=== PATIENT | female | born 1975 | race Hispanic/Latino ===

== ENCOUNTER 2018-12-27 09:08 | Observation (INO) | payer OTHER ==
[2018-12-26 11:23] LABS: Basophils % (Auto) 0.9 % (0.0-1.8); Eosinophils # (Auto) 0.1 K/mm3 (0.0-0.4); Eosinophils % (Auto) 1.3 % (0.0-4.3); Hematocrit 37.2 % (30.3-42.9); Lymphocytes # (Auto) 1.8 K/mm3 (1.2-5.4); Mean Corpuscular HGB Conc 35 % (30-34); Mean Corpuscular Volume 92 fl (79-97); Monocytes # (Auto) 0.4 K/mm3 (0.0-0.8); Monocytes % (Auto) 9.2 % (0.0-7.3); Platelet Count 193 K/mm3 (140-440); Red Blood Count 4.06 M/mm3 (3.65-5.03); Red Cell Distribution Width 12.9 % (13.2-15.2)
--- NOTE | 2018-12-26 11:48 | Anesthesia Consultation ---
Anesthesia Consult and Med Hx Date of service: 12/27/18 - Airway Anesthetic Teeth Evaluation: Good ROM Head & Neck: Adequate Mental/Hyoid Distance: Adequate Mallampati Class: Class II Intubation Access Assessment: Probably Good - Pulmonary Exam CTA: Yes - Cardiac Exam Cardiac Exam: RRR - Pre-Operative Health Status ASA Pre-Surgery Classification: ASA2 Proposed Anesthetic Plan: General Nerve Block: Tap - Pulmonary Hx Asthma: Yes (Last treated 1 year ago) - Central Nervous System Hx Psychiatric Problems: Yes - Other Systems Hx Alcohol Use: Yes (Occas) Hx Cancer: No
[~2018-12-27 09:08] MED LIST: LACTATED RINGERS 1,000 ML IV SCH; MARCAINE 0.5% INFILTRATI NR; NEOSPORIN GU IR ONE; NEURONTIN PO NR; XYLOCAINE 1% 20 mL INFILTRATI NR
[2018-12-27] MEDS ORDERED: NACL BACTERIOSTATIC INFILTRATI ONE (10:14)
--- NOTE | 2018-12-27 10:31 | History and Physical Report ---
History of Present Illness Date of examination: 12/27/18 Chief complaint: Symptomatic uterine fibroids History of present illness: Pt is a 43yo WF LMP 5 years ago present for a surgical evaluation and treatment of uterine fibroids. She complains of pelvic pains and pelvic u/s showed an enlarged uterus 9.1 x 4.5 x 5.7cm with a left uterine fibroid 4.2 x 3.8 x 4.3cm She is therefore scheduled for a Robotic Assisted Total Hysterectomy with ovarian conservation. 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 Family/Genetic History: none Social history: no significant social history, Medications and Allergies Allergies Allergy/AdvReac Type Severity Reaction Status Date / Time No Known Allergies Allergy Unverified 12/22/18 09:56 Home Medications Medication Instructions Recorded Confirmed Last Taken Type FLUoxetine HCL [Fluoxetine HCl] 40 mg PO DAILY 12/22/18 12/27/18 12/26/18 09:00 History HYDROcodone/ACETAMINOPHEN 1 tab PO Q6H PRN 12/22/18 12/22/18 Unknown History [Hydrocodone-Acetamin 5-325 mg] Norethindrone-E.estradiol-Iron 1 each PO DAILY 12/22/18 12/22/18 Unknown History [Blisovi Fe 1-20 Tablet] Active Meds: Active Medications Bupivacaine HCl (Marcaine 0.5%) 20 ml INFILTRATI PREOP NR Stop: 12/27/18 23:59 Celecoxib (Celebrex) 200 mg PO PREOP NR Stop: 12/27/18 23:59 Gabapentin (Neurontin) 300 mg PO PREOP NR Stop: 12/27/18 23:59 Lactated Ringer's (Lactated Ringers) 1,000 mls @ 42 mls/hr IV DIRECT GHAZALA Lidocaine (Xylocaine 1% 20 Ml) 10 ml INFILTRATI PREOP NR Stop: 12/27/18 23:59 Midazolam HCl (Versed) 2 mg IV PREOP NR Stop: 12/27/18 12:01 Review of Systems All systems: negative - Vital Signs Vital signs: Vital Signs Temp Pulse Resp BP Pulse Ox 97.1 F L 76 20 106/68 98 12/26/18 10:50 12/26/18 10:50 12/26/18 10:50 12/26/18 10:50 12/26/18 10:50 Temp Pulse Resp BP Pulse Ox 97.1 F L 76 20 106/68 98 12/26/18 10:50 12/26/18 10:50 12/26/18 10:50 12/26/18 10:50 12/26/18 10:50 - Physical Exam Breasts: Positive: deferred Cardiovascular: Regular rate Lungs: Positive: Clear to auscultation Abdomen: Positive: normal appearance Genitourinary (Female): Positive: normal external genitalia Vagina: Positive: normal moisture Uterus: Positive: enlarged Extremities: Positive: normal Results Result Diagrams: 12/26/18 11:00 Abnormal lab results 12/26/18 Range/Units 11:00 WBC 4.3 L (4.5-11.0) K/mm3 MCHC 35 H (30-34) % RDW 12.9 L (13.2-15.2) % Lymph % (Auto) 41.0 H (13.4-35.0) % [place] % (Auto) 9.2 H (0.0-7.3) % All other labs normal. Ultrasound: report reviewed Assessment and Plan - Patient Problems (1) Uterine fibroid Onset Date: 12/27/18 Current Visit: Yes Status: Acute Qualifiers: Uterine leiomyoma location: intramural and submucous Qualified Code(s): D25.1 - Intramural leiomyoma of uterus; D25.0 - Submucous leiomyoma of uterus Plan to address problem: A: Symptomatic uterine fibroids P: Admit for a Robotic Assisted Total Hysterectomy with Bilateral Salpingectomy
--- NOTE | 2018-12-27 10:57 | Anesthesia Day of Surgery ---
Anesthesia Day of Surgery - Day of Surgery Patient Examined: Yes Patient H&P Reviewed: Yes Patient is NPO: Yes Beta Blockers: No Cardiac Clearance: No Pulmonary Clearance: No Curly's Test: N/A
[2018-12-27] MEDS ORDERED: ZOFRAN IV PRN (10:58)
[2018-12-27] MEDS ORDERED: ANCEF/STERILE WATER 2 GM/20 ML 2 GM/20 ML SYRINGE IV NR (11:00)
[2018-12-27] MEDS ORDERED: XYLOCAINE MPF 2% ONE (11:33)
[2018-12-27] MEDS ORDERED: SUBLIMAZE ONE (11:33)
[2018-12-27] MEDS ORDERED: DIPRIVAN 10 MG/ML IV ONE (11:34)
[2018-12-27] MEDS ORDERED: VERSED IV NR (12:00)
[2018-12-27] MEDS ORDERED: NEO SYNEPHRINE/NS Syringe(OR USE) IV ONE (13:50)
[2018-12-27] MEDS ORDERED: NEOSPORIN GU IR ONE (14:21)
[2018-12-27] MEDS ORDERED: NACL 0.9% IR ONE ×2 (14:21)
[2018-12-27] MEDS ORDERED: NACL 0.9% 1000 ML 1,000 ML ONE (14:39)
[2018-12-27] MEDS ORDERED: ROBINUL ONE (15:05)
[2018-12-27] MEDS ORDERED: BLOXIVERZ ONE (15:05)
--- NOTE | 2018-12-27 15:24 | Operative Report ---
Operative Report Operative Report: Date of procedure: 12/27/2018 Pre-operative diagnosis: 1. Pelvic pain 2. Symptomatic uterine fibroids Post-operative diagnosis: Same Procedure name(s): 1. Robotic-assisted total hysterectomy 2. Bilateral salpingectomy Surgeon: Tony Adames MD Police Patrol Lieutenant: Claire Veloz CSA Anesthesia: MIGUELINA Block followed by general endotracheal intubation Dr. Chau EBL: Less than 100 mls Findings: A 10 week size myomatous uterus with normal tubes and ovaries bilaterally. Procedure: After the patient's first correctly identified she was prepped and draped in the usual sterile fashion and placed in the dorsolithotomy position. The bladder was first catheterized using Alarcon catheter and the speculum was placed in the vagina and the anterior lip of the cervix was grasped using a single-tooth tenaculum, and the medium Vesicare cup was placed. The tenaculum and speculum was then removed from the vagina and attention was then turned to the abdomen. The skin knife was used to make a small incision approximately 5 cm above the umbilicus through which a 12 mm trocar was placed under direct visualization. After adequate amount of abdominal insufflation visualization of the pelvic organs found the uterus to be enlarged and the tubes and ovaries were found to be normal bilaterally. A right and left paramedian incision was made through which the 8 mm trochars were placed under direct visualization and a 5 mm trocar was placed in the right upper quadrant. The patient was then placed in steep Trendelenburg positioning and the robot was docked on the patient's left side. After all the robotic ports were connected and adequate functioning of the robotic arms were tested the surgeon then proceeded to the console to begin the hysterectomy. First the left round ligament was grasped, cauterized and cut, the left utero- ovarian ligaments were grasped, cauterized and cut, and the left fallopian tube also grasped, cauterized and cut along the mesosalpinx, thus freeing the left ovary from the left uterine sidewall. The same procedure was performed on the right. The right round ligament was grasped, cauterized and cut, the right utero-ovarian ligaments were grasped, cauterized and cut, and the right fallopian tube also grasped, cauterized and cut along the mesosalpinx, thus freeing the right ovary from the right uterine sidewall. The bladder flap was taken down anteriorly and the uterine vessels were grasped, cauterized and cut bilaterally. The cardinal ligaments were sequentially grasped, cauterized and cut down to the level of the uterosacral ligaments. At this time the posterior colpotomy was performed over the Vcare cup, and the cervix was circumscribed beginning posteriorly and meeting anteriorly until the cervix was freed. The cervix and uterus was then removed through the vagina and sent to pathology. The vaginal cuff was then closed using 2-0 Vloc suture in a running fashion. Irrigation was then performed and after good hemostasis was achieved the procedure was considered complete. The Tisseel sealant was then sprayed across the vaginal cuff site, and after excellent hemostasis was assured Interceed was placed across the vaginal cuff site. The abdominal pressure was reduced to 5mm of mercury and excellent hemostasis was assured. All instruments were then removed from the abdominal cavity. And each incision was closed using 0 Vicryl suture in a [id number] configuration on the fascia followed by 4-0 Monocryl suture in a sub-cuticular fashion on the skin. Each incision was also infiltrated using 0.5% Marcaine solution. The vaginal pack was removed. The patient tolerated the procedure well and was transported to the recovery room in stable condition.
[2018-12-27] MEDS ORDERED: TYLENOL PO PRN (15:25)
[2018-12-27] MEDS ORDERED: NARCAN 0.4 MG/1 ML IV PRN (15:25)
[2018-12-27] MEDS ORDERED: MILK OF MAGNESIA PO PRN (15:25)
[2018-12-27] MEDS ORDERED: PHENERGAN PR PRN (15:25)
[2018-12-27] MEDS ORDERED: NORCO 5/325 PO PRN (15:25)
[2018-12-27] MEDS: DILAUDID IV PRN ×2 (15:42→15:50)
[2018-12-27] MEDS ORDERED: DILAUDID ONE (15:42)
[2018-12-27] MEDS ORDERED: LACTATED RINGERS 0 ML ONE (15:46)
[2018-12-27] MEDS ORDERED: D5LR 1,000 ML IV ONE (15:47)
[2018-12-27] MEDS: TORADOL IV SCH ×2 (16:00→22:51)
[2018-12-27] MEDS ORDERED: D5LR 1,000 ML IV SCH (16:00)
[2018-12-27] MEDS: PERCOCET 5/325 PO PRN ×2 (17:18→22:55)
[2018-12-27] MEDS ORDERED: AMBIEN PO PRN (20:00)
[2018-12-27] MEDS: ANCEF/NS 1 GM/50 ML 1 GM/50 ML BAG IV SCH (20:44)
[2018-12-27] MEDS ORDERED: COLACE PO SCH (22:00)
[2018-12-28] MEDS: ANCEF/NS 1 GM/50 ML 1 GM/50 ML BAG IV SCH (04:25)
[2018-12-28] MEDS: TORADOL IV SCH ×2 (04:28→10:49)
[2018-12-28] MEDS: PERCOCET 5/325 PO PRN ×2 (06:14→12:44)
[2018-12-28 06:26] LABS: Hematocrit 34.5 % (30.3-42.9); Hemoglobin 11.9 gm/dl (10.1-14.3)
--- NOTE | 2018-12-28 10:42 | Progress Note ---
Assessment and Plan - Patient Problems (1) Uterine fibroid Onset Date: 12/27/18 Current Visit: Yes Status: Resolved Qualifiers: Uterine leiomyoma location: intramural and submucous Qualified Code(s): D25.1 - Intramural leiomyoma of uterus; D25.0 - Submucous leiomyoma of uterus (2) Status post robot-assisted surgical procedure Onset Date: 12/28/18 Current Visit: Yes Status: Resolved Plan to address problem: A: S/P RATH - POD #1 Doing well Asymptomatic anemia - stable P: May go home today. Subjective - Subjective Date of service: 12/28/18 Principal diagnosis: s/p RATH - POD #1 Interval history: Pt is feeling well, but complains of incisional pains. She is tolerating a liquid diet without nausea or vomiting, ambulating and voiding without difficulty. Patient reports: appetite normal, voiding normally, pain well controlled, flatus, ambulating normally, no dizzy ambulation, no nauseated Objective - Vital Signs Latest vital signs: Vital Signs Temp Pulse Resp Resp BP BP Pulse Ox 12/28/18 04:40 99.0 F 78 95/52 97 12/27/18 23:28 98.0 F 105 H 121/69 98 12/27/18 20:20 97.6 F 12/27/18 20:10 105 H 112/70 98 12/27/18 17:42 20 12/27/18 17:18 20 12/27/18 17:00 98.5 F 77 20 20 122/72 97 12/27/18 16:30 98 F 88 12 120/70 98 12/27/18 16:16 10 L 12/27/18 16:15 83 10 L 121/65 98 12/27/18 16:00 88 10 L 121/58 99 12/27/18 15:50 78 12 124/66 100 12/27/18 15:45 85 12 124/61 100 12/27/18 15:42 16 12/27/18 15:40 89 16 119/65 100 12/27/18 15:35 84 16 121/67 100 12/27/18 15:30 97.8 F 96 H 18 118/62 100 12/27/18 11:50 75 14 102/56 98 12/27/18 11:45 69 13 102/55 99 12/27/18 11:40 75 14 108/56 99 03/12/19 11:30 78 12 95/57 100 12/27/18 11:25 77 13 93/60 100 12/27/18 11:20 74 11 L 97/49 99 Intake and Output 12/27/18 12/28/18 12/28/18 22:59 06:59 14:59 Intake Total 540 50 Output Total 105 1200 Balance 435 -1150 Intake: IV 300 50 ANCEF/NS 1 GM/50 ML 1 gm 50 50 In 50 ml @ 100 mls/hr IV Q8H FOR[facility]LY [facility], [facility]–1983 Rx#:[id number] Oral 240 Output: Urine 105 1200 Indwelling Catheter 1200 Uretheral (Alarcon) 75 Other: Total, Intake Amount 240 Total, Output Amount 1200 Voiding Method Indwelling Catheter Indwelling Catheter Toilet - Exam Abdomen: Present: normal appearance, soft Extremities: Present: normal Incision: Present: normal, dry, intact - Labs Labs: Laboratory Tests 12/26/18 12/26/18 12/27/18 11:00 11:00 10:09 WBC 4.3 L RBC 4.06 Hgb 13.0 Hct 37.2 MCV 92 MCH 32 MCHC 35 H RDW 12.9 L Plt Count 193 Lymph % (Auto) 41.0 H [place] % (Auto) 9.2 H Eos % (Auto) 1.3 Baso % (Auto) 0.9 Lymph # 1.8 [place] # 0.4 Eos # 0.1 Baso # 0.0 Seg Neutrophils % 47.6 Seg Neutrophils # 2.0 HCG, Qual Negative Blood Type A POSITIVE Antibody Screen Negative 12/28/18 06:14 WBC RBC Hgb 11.9 Hct 34.5 MCV MCH MCHC RDW Plt Count Lymph % (Auto) [place] % (Auto) Eos % (Auto) Baso % (Auto) Lymph # [place] # Eos # Baso # Seg Neutrophils % Seg Neutrophils # HCG, Qual Blood Type Antibody Screen
--- NOTE | 2018-12-28 11:44 | Discharge Summary ---
Providers - Providers Date of Admission: 12/27/18 15:26 Date of discharge: 12/28/18 Attending physician: DORON SERRATO Hospitalization Reason for admission: other (Symptomatic uterine fibroid) Procedure: other (Robotic Assisted Total Hysterectomy with Bilateral Salpingectomy) Episiotomy: none Laceration: none Incision: normal, dry, intact Other procedures: none complications: none Discharge diagnosis: other (s/p RATH) Hospital course: Pt is a 43yo WF LMP 5 years ago who presented for a surgical evaluation and treatment of uterine fibroids. She complained of pelvic pains and pelvic u/s showed an enlarged uterus 9.1 x 4.5 x 5.7cm with a left uterine fibroid 4.2 x 3.8 x 4.3cm She underwent an uncomplicated Robotic Assisted Total Hysterectomy with Bilateral salpingectomy and tolerated the procedure well. By POD #1 she was tolerating a reg diet without nausea or vomiting, ambulating and voiding without difficulty. She was therefore discharged to home on POD #1 in stable condition. Condition at discharge: Good Disposition: DC-01 TO HOME OR SELFCARE - Discharge Diagnoses (1) Uterine fibroid Status: Resolved Qualifiers: Uterine leiomyoma location: intramural and submucous Qualified Code(s): D25.1 - Intramural leiomyoma of uterus; D25.0 - Submucous leiomyoma of uterus (2) Status post robot-assisted surgical procedure Status: Resolved Plan - Discharge Medications Prescriptions: Ibuprofen [Motrin] 800 mg PO Q8HR PRN #30 tablet PRN Reason: Pain, Mild (1-3) HYDROcodone/APAP 5-325 [[place] 5-325 mg TAB] 1 each PO Q4H PRN #10 tablet PRN Reason: Pain, Moderate (4-6) oxyCODONE /ACETAMINOPHEN [Percocet 5/325 mg] 1 tab PO Q6H PRN #30 tablet PRN Reason: Pain, Moderate (4-6) - Provider Discharge Summary Activity: routine, no sex for 6 weeks, no heavy lifting 4 weeks, no strenuous exercise Diet: routine Instructions: routine Additional instructions: [] Smoking cessation referral if applicable(refer to patient education folder for contact #) [] Refer to [facility]'s [facility] Booklet Call your doctor immediately for: * Fever > 100.5 * Heavy vaginal bleeding ( >1 pad per hour) * Severe persistent headache * Shortness of breath * Reddened, hot, painful area to leg or breast * Drainage or odor from incision. * Keep incision clean and dry at all times and follow doctor's instructions regarding bathing/showering - Follow up plan Follow up: SUSI TATE [Other] - 7 Days DORON SERRATO MD [Staff Physician] - 14 Days
[2018-12-28] MEDS ORDERED: AFLURIA QUAD 2018-2019 SYRINGE IM ONE (12:00)
[2018-12-28 14:08] VITALS: BP 123/73
== END 2018-12-28 13:30 | disposition home or self-care (01) ==
LOC: OR 09:08 → OB 15:26
PROVIDERS: ADMIT Obstetrics & Gynecology; ATTEND Obstetrics & Gynecology
DX: D25.9 Leiomyoma of uterus, unspecified (principal); R10.2 Pelvic and perineal pain; J45.909 Unspecified asthma, uncomplicated; K21.9 Gastro-esophageal reflux disease without esophagitis; Z98.890 Other specified postprocedural states
CPT/HCPCS: 36415; 58552; 64450; 84703; 85014; 85018; 85025; 86850; 86900; 86901; 88307; 90686; 96365; 96366; 96375; 96376; A4217; C1765; C9250; G0378; J0690; J1170; J1885; J2250; J2370; J2704; J2710; J3010; J7030; J7120; J7121; S2900